=== PATIENT | male | born 1950 | race Caucasian/White ===

== ENCOUNTER 2017-06-23 11:45 | Emergency (ER) | payer BC ==
[2017-06-23 11:53] VITALS: RESP 18
[2017-06-23] MEDS ORDERED: KETOROLAC 60 MG/2 ML VIAL IM STA (12:36)
--- NOTE | 2017-06-23 12:39 | ED ---
General Adult HPI - General Chief complaint: Back Pain/Injury Stated complaint: Back Pain Time Seen by Provider: 06/23/17 12:19 Source: patient, RN notes reviewed Mode of arrival: ambulatory Limitations: no limitations - History of Present Illness Initial comments: Patient 66-year-old male presented to the emergency room today with a chief complaint of pain left side of his back. Patient states that pain started 2 days ago. He describes it as sharp type pain is reproduced with certain movements. He states he sitting her not moving has no pain. Patient does admit that he talked to the family doctor who did call and a muscle relaxer that he tried last night with little relief the symptoms. Patient denies any known injury or trauma to the area. He does admit that he has diabetic nerve pain that he takes Lyrica for but this feels different. He states does not feel like a kidney stone that he had in the past as well. Patient denies any other complaints. Patient denies any recent fever, chills, shortness of breath, chest pain, abdominal pain, nausea or vomiting, numbness or tingling, dysuria or hematuria, constipation or diarrhea, headaches or visual changes, or any other complaints. - Related Data Home Medications Medication Instructions Recorded Confirmed Atorvastatin [Lipitor] 80 mg PO W/SUPPER 05/21/14 06/23/17 Cholecalciferol [Vitamin D3] 2,000 unit PO BID-W/MEALS 05/21/14 06/23/17 Famotidine [Pepcid] 20 mg PO W/SUPPER 05/21/14 06/23/17 Furosemide [Lasix] 40 mg PO DAILY PRN 05/21/14 06/23/17 Levothyroxine Sodium [Synthroid] 100 mcg PO DAILY 05/21/14 06/23/17 Losartan [Cozaar] 50 mg PO DAILY 05/21/14 06/23/17 Newton-3 Fatty Acids/Fish Oil [Fish 1 cap PO BID 05/21/14 06/23/17 Oil 1,000 mg Softgel] Spironolactone 50 mg PO DAILY 05/21/14 06/23/17 metFORMIN HCL [Glucophage] 1,000 mg PO BID 05/21/14 06/23/17 Aspirin EC [Ecotrin] 81 mg PO DAILY 06/13/14 06/23/17 Docusate [Colace] 100 mg PO DAILY 06/13/14 06/23/17 Insulin Glargine [Lantus] 60 unit SQ QAM 06/13/14 06/23/17 Naproxen Sodium [Aleve] 220 mg PO BID PRN 06/13/14 06/23/17 Acetaminophen [Tylenol Extra 500 mg PO Q6H PRN 06/23/17 06/23/17 Strength] Baclofen 10 mg PO TID 06/23/17 06/23/17 Chlorpheniramine/Dextromethorp 1 tab PO BID PRN 06/23/17 06/23/17 [Coricidin Hbp Cough & Cold Tab] Dapagliflozin Propanediol [Farxiga] 10 mg PO DAILY 06/23/17 06/23/17 Dulaglutide [Trulicity] 1.5 mg SQ MO 06/23/17 06/23/17 Finasteride [Proscar] 5 mg PO W/SUPPER 06/23/17 06/23/17 Hydrocodone/Acetaminophen [[place] 1 tab PO BID PRN 06/23/17 06/23/17 5-325] Metoprolol Tartrate [Lopressor] 25 mg PO BID 06/23/17 06/23/17 Multivit-Min/FA/Lycopen/Lutein 1 tab PO DAILY 06/23/17 06/23/17 [Centrum Silver Men Tablet] Pregabalin [Lyrica] 100 mg PO QID 06/23/17 06/23/17 Tamsulosin [Flomax] 0.4 mg PO BID-W/MEALS 06/23/17 06/23/17 Previous Rx's Medication Instructions Recorded Hydrocodone/Acetaminophen [[place] 1 each PO Q4-6H PRN #15 tab 06/23/17 5-325] Allergies Allergy/AdvReac Type Severity Reaction Status Date / Time Penicillins Allergy Rash/Hives Verified 06/23/17 12:22 Review of Systems ROS Statement: Those systems with pertinent positive or pertinent negative responses have been documented in the HPI. ROS Other: All systems not noted in ROS Statement are negative. Past Medical History Past Medical History: Coronary Artery Disease (CAD), Diabetes Mellitus, GERD/ Reflux, Hyperlipidemia, Hypertension, Musculoskeletal Disorder, Thyroid Disorder Additional Past Medical History / Comment(s): "BODY PAINS AT NIGHT, D/T DM". NIDDM 2003. History of Any Multi-Drug Resistant Organisms: None Reported Past Surgical History: Cholecystectomy, Coronary Bypass/CABG, Hernia Repair Additional Past Surgical History / Comment(s): PART THYROIDECTOMY. QUAD CABG 2010. Past Anesthesia/Blood Transfusion Reactions: No Reported Reaction Past Psychological History: No Psychological Hx Reported Smoking Status: Never smoker Past Alcohol Use History: None Reported Past Drug Use History: None Reported - Past Family History Father Family Medical History: Cancer Additional Family Medical History / Comment(s): Lung CA General Exam - General Exam Comments Initial Comments: General: The patient is awake and alert, in no distress, and does not appear acutely ill. Eye: Pupils are equal, round and reactive to light, extra-ocular movements are intact. No nystagmus. There is normal conjunctiva bilaterally. No signs of icterus. Ears, nose, mouth and throat: There are moist mucous membranes and no oral lesions. Neck: The neck is supple, there is no tenderness or JVD. Cardiovascular: There is a regular rate and rhythm. No murmur, rub or gallop is appreciated. Respiratory: Lungs are clear to auscultation, respirations are non-labored, breath sounds are equal. No wheezes, stridor, rales, or rhonchi. Musculoskeletal: Normal ROM. Mild tenderness to the left lateral lower ribs. Strength 5/5. Sensation intact. Pulses equal bilaterally 2+. Neurological: A&O x 3. CN II-XII intact, There are no obvious motor or sensory deficits. Coordination appears grossly intact. Speech is normal. Skin: Skin is warm and dry and no rashes or lesions are noted. Psychiatric: Cooperative, appropriate mood & affect, normal judgment. Limitations: no limitations Course Vital Signs 06/23/17 11:49 Temperature 98.2 F Pulse Rate 81 Respiratory 18 Rate Blood Pressure 133/64 O2 Sat by Pulse 95 Oximetry Medical Decision Making - Medical Decision Making Patient's x-rays have been reviewed and lumbar spine shows degenerative changes. X-ray of the chest shows some irregularity consistent with a rib fracture on the left. Patient does have some tenderness to the left lateral ribs. Patient denies any specific injury or trauma. He does admit that his violent sneeze or does not remember anything specifically. Does admit that is worse with coughing and sneezing and certain movements. Patient states that he sitting still spine certain movements cause pain. Does admit to some mild improvement with the Toradol given here the emergency room. Patient is fussy can continue anti-inflammatories at home but will be given a short prescription of [place] to go home with. He does have a follow-up appointment with his family doctor in the next 2 days. Advised return if symptoms increase worsen or any other concerns. Disposition Clinical Impression: Rib fracture Disposition: HOME SELF-CARE Condition: Good Instructions: Rib Fracture (ED) Additional Instructions: Please use medication as discussed. Please follow-up with family doctor in the next 2 days of symptoms have not improved. Please return to emergency room if the symptoms increase or worsen or for any other concerns. Prescriptions: Hydrocodone/Acetaminophen [[place] 5-325] 1 each PO Q4-6H PRN #15 tab PRN Reason: Pain Is patient prescribed a controlled substance at d/c from ED?: Yes Referrals: Susanna Yang MD [Primary Care Provider] - 1-2 days Time of Disposition: 13:33
--- NOTE | 2017-06-23 13:07 | XR ---
EXAMINATION TYPE: XR chest 2V DATE OF EXAM: 06/23/2017 COMPARISON: 11/15/2010 TECHNIQUE: PA and lateral views submitted. HISTORY: Pain FINDINGS: Postoperative changes seen. There is subsegmental linear changes in the left lung suggestive of scar or atelectasis. Arthropathy of the shoulders. No pneumothorax or overt failure. Surgical clips in the abdomen. Hypertrophic change of the spine. There is to be deformity of the lateral margin of the lef t rib cage suggestive of fracture. IMPRESSION: 1. Findings are suggestive of a lateral mid to lower left rib fracture. 2. Linear changes involving the left lung suggestive of scar or atelectasis.
--- NOTE | 2017-06-23 13:12 | XR ---
EXAM TYPE: LUMBAR SPINE X RAY SERIES COMPARISON: NONE HISTORY: Pain TECHNIQUE: Three views are submitted. FINDINGS: Alignment is anatomic. The pedicles are intact. The transverse processes are intact. Surgical clips in the gallbladder fossa. Hypertrophic and degenerative change of the spine noted with marked facet arthropathy L4-5 and L5-S1. Vascular calcifications are noted. There may be minimal ant erolisthesis of L4 on L5. IMPRESSION: 1. Multilevel degenerative disc disease with severe facet arthropathy L4-5 and L5-S1. Grade 1 anterol isthesis L4 on L5.
[2017-06-23 13:36] VITALS: BP 110/58; PULSE 78; TEMP 97.9
== END 2017-06-23 13:42 | disposition home or self-care (01) ==
LOC: EC 11:45
DX: S22.32XA Fracture of one rib, left side, initial encounter for closed fracture (principal); M47.896 Other spondylosis, lumbar region; I25.10 Atherosclerotic heart disease of native coronary artery without angina pectoris; E11.9 Type 2 diabetes mellitus without complications; K21.9 Gastro-esophageal reflux disease without esophagitis; I10 Essential (primary) hypertension; E07.9 Disorder of thyroid, unspecified; Z95.1 Presence of aortocoronary bypass graft; Z79.4 Long term (current) use of insulin; Z79.82 Long term (current) use of aspirin; Z79.899 Other long term (current) drug therapy; Z88.0 Allergy status to penicillin
CPT/HCPCS: 72100; 71046; 99283; 96372; J1885

== ENCOUNTER → 2020-07-21 | Outpatient (CLI) | payer BC ==
[2020-07-21 16:20] LABS: HGB 14.7 gm/dL (13.0-17.5); MCH 30.3 pg (25.0-35.0); MCHC 33.4 g/dL (31.0-37.0); MCV 90.8 fL (80.0-100.0); Mean Platelet Volume 7.1; Platelet Count 259 k/uL (150-450); RBC 4.84 m/uL (4.30-5.90); RDW 14.7 % (11.5-15.5); WBC 9.3 k/uL (3.8-10.6)
[2020-07-21 16:31] LABS: Potassium 4.7 mmol/L (3.5-5.1)
== END | disposition home or self-care (01) ==
LOC: LABWHC1 14:56
PROVIDERS: ATTEND Internal Medicine Interventional Cardiology
DX: Z01.812 Encounter for preprocedural laboratory examination (principal); R94.39 Abnormal result of other cardiovascular function study
CPT/HCPCS: 36415; 80051; 82565; 84520; 85027

== ENCOUNTER 2020-07-24 06:36 | Day surgery (SDC) | payer BC ==
[2020-07-22 15:35] VITALS: BMI 38.2
[~2020-07-24 06:36] MED LIST: ALPRAZolam 0.25 MG TAB PO PRN; ALPRAZolam 0.5 MG TAB PO PRN; ASPIRIN 325 MG TAB PO STA; ATORVASTATIN 80 MG TAB PO STA; NITROGLYCERIN SL TABS 0.4 MG TAB SUBLINGUAL PRN; SODIUM CHLORIDE 0.9% 1,000 ML in EMPTY BAG 1 BAG IV ONE
[2020-07-24] MEDS ORDERED: SODIUM CHLORIDE 0.9% 1,000 ML IV ONE (06:42)
[2020-07-24 07:09] VITALS: RESP 16; TEMP 99.1
[2020-07-24 07:15] LABS: Glucose,Whole Blood 222 mg/dL (75-99)
[2020-07-24] MEDS ORDERED: INSULIN ASPART (NovoLOG) 100 UNIT/ML VIAL SQ ONE (07:15)
[2020-07-24] MEDS ORDERED: LIDOCAINE 1% INJ 10MG/ML (20 ML MDV) ONE (12:17)
[2020-07-24] MEDS ORDERED: LIDOCAINE 1% INJ 10MG/ML (20 ML MDV) SQ ONE (12:31)
[2020-07-24] MEDS ORDERED: MIDAZOLAM 2 MG/2 ML VIAL IV ONE (12:31)
[2020-07-24] MEDS ORDERED: IOPAMIDOL-370 125ML BTL INJ ONE (12:51)
[2020-07-24] MEDS ORDERED: RX INFO: IV CONTRAST WAS GIVEN 1 EACH MISC MISCELLANE PRN (12:56)
[2020-07-24] MEDS ORDERED: SODIUM CHLORIDE 0.9% 1,000 ML IV SCH (13:00)
[2020-07-24] MEDS ORDERED: HYDROmorphone 0.5 MG/0.5 ML SYRINGE IVP PRN (13:15)
[2020-07-24 16:49] VITALS: BP 159/73; PULSE 88
--- NOTE | 2020-07-24 18:59 | CC ---
CARDIAC CATHETERIZATION REPORT DATE OF SERVICE: July 24, 2020. PERFORMING PHYSICIAN: Rah Alonzo MD. PROCEDURE PERFORMED: 1. Selective left and right coronary angiogram. 2. GU to LAD angiogram. 3. SVG to first and second diagonal angiogram. 4. Aortic root angiogram. 5. Left heart catheterization. 6. Selective right common femoral artery angiogram. INDICATION: This is a 69-year-old gentleman with coronary artery disease and prior coronary artery bypass grafting with GU to LAD and SVG to first and second diagonal and radial artery to OM, who was seen in the office recently where he was experiencing symptoms of chest pain and shortness of breath concerning for severe underlying coronary artery disease. APPROACH: Right common femoral artery. COMPLICATION: None. LEVEL OF SEDATION: Moderate with sedation length of 20 minutes. PROCEDURE DESCRIPTION: After obtaining informed consent, the patient was brought to the cardiac stores laborer. The right common femoral artery was cannulated using micropuncture technique and a micropuncture wire passed easily. Then I placed a 6-[place] sheath at the right common femoral artery. I did perform selective left and right coronary angiogram with JL4 and JR4 catheters. SVG to first and second diagonal was performed using the JR4 catheter. The GU to LAD angiogram was performed using the JR4 catheter. An aortic root angiogram was performed using the 6-[place] pigtail catheter and the left heart catheterization also was performed using 6-[place] pigtail catheter. The procedure was completed without any complication and by the end, we did selective right common femoral artery angiogram. SELECTIVE CORONARY ANGIOGRAM: 1. The left main appeared to have mild to moderate disease. It bifurcates into LCX and LAD. 2. The LCX has ostial lesion appeared to be in the range of 50% to 60%. 3. The LAD is 100% occluded in the proximal portion. 4. The RCA appeared to have mild disease only. CORONARY BYPASSES ANGIOGRAM: 1. The GU to LAD is patent and feeds the LAD all the way to the midportion and also feeds the diagonal. 2. The SVG to first and second diagonal was occluded. 3. I could not opacify any other bypasses and for that reason I did aortic root angiogram which did not show any evidence of bypasses as well. AORTIC ROOT ANGIOGRAM: The aortic root angiogram was performed using use in the ARMENIAN projection and using a power injection. The aortic root did not show any evidence of bypasses. HEMODYNAMICS: The LVEDP was 10 to 12 mmHg without significant gradient across aortic valve. CONCLUSION: 1. Occluded LAD in the proximal portion, but the GU to LAD is widely patent with good flow. 2. Intermediate lesion involving unprotect left circumflex. The lesion is in the proximal portion. 3. Mild disease involving the right coronary artery. 4. Normal LVEDP. POSTPROCEDURE MANAGEMENT: 1. Aggressive cholesterol control. 2. Risk factor modifications. 3. Continue follow up with the patient. MMODL / IJN: [id number] /
== END 2020-07-24 18:13 | disposition home or self-care (01) ==
LOC: CATHCVL 06:36
PROVIDERS: ATTEND Internal Medicine Interventional Cardiology
DX: I25.110 Atherosclerotic heart disease of native coronary artery with unstable angina pectoris (principal); I25.82 Chronic total occlusion of coronary artery; I10 Essential (primary) hypertension; I25.710 Atherosclerosis of autologous vein coronary artery bypass graft(s) with unstable angina pectoris; E13.9 Other specified diabetes mellitus without complications; E66.3 Overweight; E78.00 Pure hypercholesterolemia, unspecified; E78.5 Hyperlipidemia, unspecified; Z79.890 Hormone replacement therapy; Z79.4 Long term (current) use of insulin; Z79.899 Other long term (current) drug therapy; Z88.0 Allergy status to penicillin
CPT/HCPCS: 93459; 93567; 87635; C1760; C1894; C1769 ×2; J2250; J2001; J1170; Q9967

== ENCOUNTER → 2020-08-27 | Outpatient (CLI) | payer BC ==
--- NOTE | 2020-08-28 05:28 | MR ---
EXAMINATION TYPE: MR lumbar spine wo con DATE OF EXAM: 08/27/2020 COMPARISON: None HISTORY: Low back pain down both legs for several years. Multiplanar multiecho imaging of the lumbar spine with no contrast. There is a few millimeter anterior subluxation of L4 in relation L5. I see no spondylolysis. There is mild disc space narrowing at L3-4 and L4-5. There are small posterior disc herniations from L3 to S1 . There is developmentally large spinal canal and no spinal stenosis. Sacroiliac joints appear intact . There is mild hypertrophic facet arthropathy in the lower lumbar spine. There is no paraspinal mass . The lumbar neural foramina are fairly normal. There is slight narrowing of the L4-5 and L5-S1 neura l foramina due to mild disc space narrowing and facet arthropathy. There is no compression fracture. I see no focal bone destruction. IMPRESSION: Mild multilevel spondylotic changes and multilevel mild posterior central disc herniations. No spinal stenosis. No fracture.
--- NOTE | 2020-08-28 05:31 | MR ---
EXAMINATION TYPE: MR brain wo con DATE OF EXAM: 08/27/2020 COMPARISON: None HISTORY: Dizziness, balance issues, memory loss. Multiplanar multiecho imaging of the brain with no contrast. There is some diffuse cerebral cortical atrophy. There is no mass effect nor midline shift. There is no sign of intracranial hemorrhage. Diffusion images show no evidence of an acute infarct. On the T2 and FLAIR images there are scattered white matter high signal foci at the guerra-white matter junction of both cerebral hemispheres. These measure up to 7 mm and total number is approximately 15 . The brainstem is intact. Cerebellum is intact. There is some mucosal thickening in the ethmoid air cells. The internal auditory canals appear normal. IMPRESSION: Cerebral atrophy. White matter signal changes probably due to chronic small vessel ischemia. Demyelin ating disease not entirely excluded. No evidence of an acute infarct. No focal posterior fossa abnorm ality. Mild ethmoid sinusitis.
== END | disposition home or self-care (01) ==
LOC: RADMRIMAIN 15:35
PROVIDERS: ATTEND Psychiatry & Neurology Neurology
DX: M47.816 Spondylosis without myelopathy or radiculopathy, lumbar region (principal); M51.27 Other intervertebral disc displacement, lumbosacral region; G31.9 Degenerative disease of nervous system, unspecified
CPT/HCPCS: 70551; 72148

== ENCOUNTER → 2020-09-01 | Outpatient (CLI) | payer BC ==
[2020-09-01 23:41] LABS: Basophils # (A) 0.05 X 10*3/uL (0.00-0.10); Basophils % (A) 0.6 %; Eosinophils # (A) 0.17 X 10*3/uL (0.04-0.35); Eosinophils % (A) 1.9 %; HGB 13.9 g/dL (13.0-17.0); Lymphocytes # (A) 1.92 X 10*3/uL (0.90-5.00); Lymphocytes % (A) 21.2 %; MCH 29.5 pg (27.0-32.0); MCHC 31.6 g/dL (32.0-37.0); MCV 93.4 fL (80.0-97.0); Mean Platelet Volume 9.6 fL (9.5-12.2); Monocytes # (A) 0.95 X 10*3/uL (0.20-1.00); Monocytes % (A) 10.5 %; Neutrophils # (A) 5.91 X 10*3/uL (1.80-7.70); Neutrophils % (A) 65.2 %; Platelet Count 242 X 10*3/uL (140-440); RBC 4.71 X 10*6/uL (4.40-5.60); RDW 15.2 % (11.5-14.5); WBC 9.05 X 10*3/uL (4.50-10.00)
[2020-09-02 00:40] LABS: Erythrocyte Sedimentation Rate 37 mm/Hr (0-20)
[2020-09-02 00:47] LABS: Protein, Total 6.8 g/dL (6.2-8.2)
[2020-09-02 03:52] LABS: Hemoglobin A1C 8.5 % (4.0-6.0)
[2020-09-02 05:13] LABS: ALT 25 U/L (10-49); AST 21 U/L (14-35); C Reactive Protein <0.4 mg/dL (0.0-0.8); Carbon Dioxide 25.7 mmol/L (21.6-31.8); Chloride 102 mmol/L (96-109); Potassium 4.6 mmol/L (3.5-5.5); Prostate Specific Antigen 1.4 ng/mL (0.0-6.5); Sodium 139 mmol/L (135-145); Uric Acid 5.8 mg/dL (3.7-8.7)
[2020-09-02 13:11] LABS: Albumin 3.84 g/dL (3.80-4.90)
[2020-09-02 13:25] LABS: C-ANCA <1:20 Titer (<1:20)
== END | disposition home or self-care (01) ==
LOC: LABWHC1 13:57
PROVIDERS: ATTEND Urology
DX: R97.20 Elevated prostate specific antigen [PSA] (principal); G31.84 Mild cognitive impairment of uncertain or unknown etiology; G47.33 Obstructive sleep apnea (adult) (pediatric); G62.9 Polyneuropathy, unspecified; M54.30 Sciatica, unspecified side; G47.19 Other hypersomnia; R47.89 Other speech disturbances
CPT/HCPCS: 36415; 80051; 82140; 82607; 83036; 84153; 84165; 84439; 84450; 84460; 84481; 84550; 85025; 85652; 86038; 86140; 86255; 86334; 86780

== ENCOUNTER → 2020-11-04 | Outpatient (CLI) | payer BC ==
[2020-11-04 18:52] LABS: Basophils # (A) 0.07 X 10*3/uL (0.00-0.10); Basophils % (A) 0.8 %; Eosinophils # (A) 0.19 X 10*3/uL (0.04-0.35); Eosinophils % (A) 2.2 %; HCT 45.9 % (39.6-50.0); HGB 14.5 g/dL (13.0-17.0); Lymphocytes # (A) 1.64 X 10*3/uL (0.90-5.00); Lymphocytes % (A) 18.8 %; MCH 29.6 pg (27.0-32.0); MCHC 31.6 g/dL (32.0-37.0); MCV 93.7 fL (80.0-97.0); Mean Platelet Volume 9.5 fL (9.5-12.2); Monocytes % (A) 10.3 %; Neutrophils # (A) 5.87 X 10*3/uL (1.80-7.70); Neutrophils % (A) 67.4 %; Platelet Count 238 X 10*3/uL (140-440); RDW 15.5 % (11.5-14.5); WBC 8.71 X 10*3/uL (4.50-10.00)
[2020-11-04 20:38] LABS: Hemoglobin A1C 7.7 % (4.0-6.0)
[2020-11-05 03:26] LABS: African American GFR (CKD) 64.1 (60.0-200.0); Albumin 4.7 g/dL (3.80-4.90); Albumin/Globulin Ratio 2.14 (1.60-3.17); Anion Gap 10.9 mmol/L (4.00-12.00); BUN/Creat Ratio 19.23 Ratio (12.00-20.00); Calcium 9.2 mg/dL (8.7-10.3); Carbon Dioxide 25.1 mmol/L (21.6-31.8); Chol/HDL Ratio 4.66; Globulin 2.2 g/dL (1.6-3.3); LDL Cholesterol,Calculated 98.8 mg/dL (0.0-131.0); Non-African American GFR(CKD) 55.3 (60.0-200.0); Potassium 4.8 mmol/L (3.5-5.5); Total Bilirubin 0.5 mg/dL (0.3-1.2); Total Protein 6.9 g/dL (6.2-8.2); VLDL Calculation 29.2 mg/dL (5.00-40.00)
== END | disposition home or self-care (01) ==
LOC: LABWHC1 14:33
PROVIDERS: ATTEND Internal Medicine Infectious Disease
DX: Z12.5 Encounter for screening for malignant neoplasm of prostate (principal); I10 Essential (primary) hypertension; E11.9 Type 2 diabetes mellitus without complications; E78.00 Pure hypercholesterolemia, unspecified; E03.9 Hypothyroidism, unspecified; E55.9 Vitamin D deficiency, unspecified
CPT/HCPCS: 84439; 80061; 80053; 84443; 85025; 82306; 83036; 36415; G0103

== ENCOUNTER → 2021-02-26 | Outpatient (CLI) | payer BC ==
[2021-02-26 19:08] LABS: ALT 27 U/L (10-49); AST 19 U/L (14-35); African American GFR (CKD) 64.8 (60.0-200.0); Albumin 4.3 g/dL (3.8-4.9); Albumin/Globulin Ratio 1.74 (1.60-3.17); Alkaline Phosphatase 74 U/L (41-126); BUN/Creat Ratio 18.52 Ratio (12.00-20.00); Blood Urea Nitrogen 23.7 mg/dL (9.0-27.0); Calcium 9.9 mg/dL (8.7-10.3); Carbon Dioxide 28.5 mmol/L (20.0-27.5); Chloride 102 mmol/L (96-109); Chol/HDL Ratio 4.53 Ratio; Globulin 2.5 g/dL (1.6-3.3); Glucose 157 mg/dL (70-110); LDL Cholesterol,Calculated 79.4 mg/dL (0.0-131.0); Non-African American GFR(CKD) 55.9 (60.0-200.0); Potassium 4.6 mmol/L (3.5-5.5); Sodium 141 mmol/L (135-145); Total Protein 6.8 g/dL (6.2-8.2)
[2021-02-26 20:27] LABS: Basophils # (A) 0.07 X 10*3/uL (0.00-0.10); Basophils % (A) 0.8 %; Eosinophils # (A) 0.22 X 10*3/uL (0.04-0.35); Eosinophils % (A) 2.5 %; HCT 48.1 % (39.6-50.0); HGB 14.8 g/dL (13.0-17.0); Lymphocytes # (A) 1.55 X 10*3/uL (0.90-5.00); Lymphocytes % (A) 17.6 %; MCH 29.4 pg (27.0-32.0); MCHC 30.8 g/dL (32.0-37.0); MCV 95.4 fL (80.0-97.0); Mean Platelet Volume 9.8 fL (9.5-12.2); Monocytes # (A) 0.72 X 10*3/uL (0.20-1.00); Monocytes % (A) 8.2 %; Neutrophils # (A) 6.18 X 10*3/uL (1.80-7.70); Neutrophils % (A) 70.3 %; Platelet Count 241 X 10*3/uL (140-440); RBC 5.04 X 10*6/uL (4.40-5.60); RDW 15.6 % (11.5-14.5); WBC 8.79 X 10*3/uL (4.50-10.00)
== END | disposition home or self-care (01) ==
LOC: LABWHC1 11:31
PROVIDERS: ATTEND Internal Medicine Infectious Disease
DX: Z12.5 Encounter for screening for malignant neoplasm of prostate (principal); E11.9 Type 2 diabetes mellitus without complications; I10 Essential (primary) hypertension; E78.00 Pure hypercholesterolemia, unspecified; E03.9 Hypothyroidism, unspecified
CPT/HCPCS: 84439; 80061; 80053; 84443; 85025; 82306; 83036; 36415; G0103

== ENCOUNTER → 2021-06-15 | Outpatient (CLI) | payer BC ==
[2021-06-15 18:56] LABS: African American GFR (CKD) 66.7 (60.0-200.0); Anion Gap 10.7 mmol/L (10.00-18.00); BUN/Creat Ratio 17.52 Ratio (12.00-20.00); Blood Urea Nitrogen 21.9 mg/dL (9.0-27.0); Calcium 9.4 mg/dL (8.7-10.3); Carbon Dioxide 26.1 mmol/L (20.0-27.5); Non-African American GFR(CKD) 57.6 (60.0-200.0); Potassium 4.2 mmol/L (3.5-5.5)
[2021-06-15 23:23] LABS: Urine Alcohol Negative (Negative); Urine Barbiturate Negative (Negative); Urine Cocaine Negative (Negative); Urine Methadone Negative (Negative); Urine Opiates Negative (Negative); Urine Phencyclidine Negative (Negative)
== END | disposition home or self-care (01) ==
LOC: LABWHC1 10:26
PROVIDERS: ATTEND Internal Medicine Infectious Disease
DX: E11.9 Type 2 diabetes mellitus without complications (principal); G89.29 Other chronic pain
CPT/HCPCS: 36415; 80048; 80306; 83036

== ENCOUNTER → 2022-01-10 | Outpatient (CLI) | payer BC ==
[2022-01-10 23:48] LABS: Basophils # (A) 0.07 X 10*3/uL (0.00-0.10); Basophils % (A) 0.7 %; Eosinophils # (A) 0.17 X 10*3/uL (0.04-0.35); Eosinophils % (A) 1.8 %; HCT 41.1 % (39.6-50.0); Immature Grans, Automated 0.4 %; Lymphocytes # (A) 1.97 X 10*3/uL (0.90-5.00); MCHC 31.6 g/dL (32.0-37.0); MCV 94.7 fL (80.0-97.0); Mean Platelet Volume 10.8 fL (9.5-12.2); Monocytes # (A) 0.73 X 10*3/uL (0.20-1.00); Monocytes % (A) 7.8 %; NRBC Per 100 WBC 0 /100 WBCS (0.0-0.0); Neutrophils # (A) 6.41 X 10*3/uL (1.80-7.70); Neutrophils % (A) 68.3 %; Platelet Count 213 X 10*3/uL (140-440); RBC 4.34 X 10*6/uL (4.40-5.60); WBC 9.39 X 10*3/uL (4.50-10.00)
[2022-01-11 00:40] LABS: ALT 22 U/L (10-49); AST 21 U/L (14-35); African American GFR (CKD) 60.4 (60.0-200.0); Albumin 4.2 g/dL (3.8-4.9); Albumin/Globulin Ratio 1.69 (1.60-3.17); Alkaline Phosphatase 57 U/L (41-126); BUN/Creat Ratio 17.85 Ratio (12.00-20.00); Blood Urea Nitrogen 24.1 mg/dL (9.0-27.0); Calcium 9.3 mg/dL (8.7-10.3); Carbon Dioxide 26.3 mmol/L (20.0-27.5); Chloride 105 mmol/L (96-109); Chol/HDL Ratio 4.19 Ratio; Globulin 2.5 g/dL (1.6-3.3); Glucose 109 mg/dL (70-110); LDL Cholesterol,Calculated 69.9 mg/dL (0.0-131.0); Non-African American GFR(CKD) 52.1 (60.0-200.0); Potassium 3.9 mmol/L (3.5-5.5); Sodium 144 mmol/L (135-145); Total Protein 6.7 g/dL (6.2-8.2)
[2022-01-11 01:21] LABS: Urine Alcohol Negative (Negative); Urine Barbiturate Negative (Negative); Urine Cocaine Negative (Negative); Urine Methadone Negative (Negative); Urine Opiates Negative (Negative); Urine Phencyclidine Negative (Negative)
== END | disposition home or self-care (01) ==
LOC: LABWHC1 13:16
PROVIDERS: ATTEND Psychiatry & Neurology Neurology
DX: Z12.5 Encounter for screening for malignant neoplasm of prostate (principal); E10.9 Type 1 diabetes mellitus without complications; E03.9 Hypothyroidism, unspecified; E78.00 Pure hypercholesterolemia, unspecified; G89.29 Other chronic pain; E55.9 Vitamin D deficiency, unspecified
CPT/HCPCS: 36415; 80053; 80061; 80306; 82306; 83036; 84439; 84443; 85025

== ENCOUNTER → 2022-07-28 | Outpatient (CLI) | payer BC ==
[2022-07-29 02:36] LABS: C Reactive Protein <0.30 mg/dL (0.00-0.80)
[2022-07-29 04:37] LABS: EBV-EA (IgG) >8.0 AI; EBV-EBNA(IgG) >8.0; EBV-VCA (IgG) >8.0 AI; EBV-VCA (IgM) 0.3 AI
== END | disposition home or self-care (01) ==
LOC: LABWHC1 15:35
PROVIDERS: ATTEND Psychiatry & Neurology Neurology
DX: G47.19 Other hypersomnia (principal); M54.2 Cervicalgia; R53.1 Weakness
CPT/HCPCS: 36415; 82306; 82607; 82728; 84403; 84443; 84480; 84481; 85652; 86038; 86140; 86618; 86663; 86664; 86665; 86780

== ENCOUNTER → 2022-09-09 | Outpatient (CLI) | payer BC ==
[2022-09-10 02:24] LABS: ALT 34 U/L (10-49); AST 26 U/L (14-35); Albumin 4.1 d/dL (3.8-4.9); Albumin/Globulin Ratio 1.95 Ratio (1.60-3.17); Alkaline Phosphatase 54 U/L (41-126); BUN/Creat Ratio 16.71 Ratio (12.00-20.00); Blood Urea Nitrogen 28.4 mg/dL (9.0-27.0); Calcium 9.6 mg/dL (8.7-10.3); Carbon Dioxide 27.8 mmol/L (21.6-31.8); Chloride 103 mmol/L (96-109); Chol/HDL Ratio 4.13 Ratio; Globulin 2.1 d/dL (1.6-3.3); Glucose 149 mg/dL (70-110); Potassium 4.2 mmol/L (3.5-5.5); Sodium 142 mmol/L (135-145); Total Bilirubin 0.2 mg/dL (0.3-1.2); Total Protein 6.2 d/dL (6.2-8.2)
[2022-09-10 02:25] LABS: T4, Free (Free Thyroxine) 1.07 ng/dL (0.80-1.80)
== END | disposition home or self-care (01) ==
LOC: LABWHC1 12:15
PROVIDERS: ATTEND Internal Medicine
DX: E11.65 Type 2 diabetes mellitus with hyperglycemia (principal); E03.9 Hypothyroidism, unspecified
CPT/HCPCS: 36415; 80053; 80061; 83036; 84439; 84443

== ENCOUNTER → 2022-11-24 | Outpatient (CLI) | payer BC ==
--- NOTE | 2022-11-25 10:53 | NM ---
EXAMINATION TYPE: NM DatScan Brain SPECT DATE OF EXAM: 11/24/2022 COMPARISON: NONE HISTORY: Parkinson's disease with trauma TECHNIQUE: 10 drops of Lugol's solution was administered 1 hour prior to injection as a thyroid bloc dulce agent. After the administration of 4.68 mCi I-123 Ioflupane DaTscan. Images obtained 3 hours p ost injection. SPECT images of the brain were acquired with axial and coronal reconstructions. FINDINGS: The axial SPECT images demonstrate increased background activity and symmetric activity wit hin the bilateral striata. Z score ranges all in the positive levels. IMPRESSION: 1. No scintigraphic evidence of idiopathic Parkinson's disease or Parkinsonian syndrome.
== END | disposition home or self-care (01) ==
LOC: RADNMMAIN 10:54
PROVIDERS: ATTEND Psychiatry & Neurology Neurology
DX: G20.C Parkinsonism, unspecified (principal); G62.9 Polyneuropathy, unspecified
CPT/HCPCS: 78803; A9584

== ENCOUNTER → 2023-03-01 | Outpatient (CLI) | payer BC ==
--- NOTE | 2023-03-01 16:50 | US ---
EXAMINATION TYPE: US venous doppler duplex LE DATE OF EXAM: 03/01/2023 3:25 PM COMPARISON: LOWER EXTREMITY VENOUS INSUFFICIENCY CLINICAL INDICATION: Male, 72 years old with history of I87.2 VENOUS INSUFFICIENCY; Pain and edema SIDE PERFORMED: bilateral 1) Color flow is present and patency is documented in the following vessels. No DVT or SVT is noted . Common Femoral Vein Deep Femoral Vein Femoral Vein Popliteal Vein Proximal Calf Veins Greater Saph Vein Upper Small Saph Vein 2) There is venous reflux noted at the following venous levels: none 3) Incompetent perforators are noted at these levels: none IMPRESSION: No evidence for DVT within the bilateral lower extremities imaged from the groin to the u pper calves. No venous reflux identified on either side.
== END | disposition home or self-care (01) ==
LOC: RADUSWWP 14:53
PROVIDERS: ATTEND Psychiatry & Neurology Neurology
DX: I87.2 Venous insufficiency (chronic) (peripheral) (principal); M79.662 Pain in left lower leg; M79.661 Pain in right lower leg; R60.0 Localized edema
CPT/HCPCS: 93970

== ENCOUNTER → 2023-11-02 | Outpatient (CLI) | payer BC ==
[2023-11-02 15:28] LABS: HCT 38.6 % (39.6-50.0); MCH 29.8 pg (27.0-32.0); MCHC 31.1 g/dL (32.0-37.0); MCV 95.8 FL (80.0-97.0); Mean Platelet Volume 10.1 FL (9.5-12.2); NRBC Per 100 WBC 0 X 10*3/uL (0.00-0.01); Platelet Count 193 X 10*3/uL (140-440); RBC 4.03 X 10*6/uL (4.40-5.60); RDW 15.9 % (11.5-14.5); WBC 7.92 X 10*3/uL (4.50-10.00)
[2023-11-02 15:29] LABS: Basophils # (A) 0.06 X 10*3/uL (0.00-0.10); Basophils % (A) 0.8 %; Eosinophils # (A) 0.16 X 10*3/uL (0.04-0.35); Lymphocytes # (A) 1.45 X 10*3/uL (0.90-5.00); Lymphocytes % (A) 18.3 %; Monocytes # (A) 0.65 X 10*3/uL (0.20-1.00); Monocytes % (A) 8.2 %; Neutrophils # (A) 5.53 X 10*3/uL (1.80-7.70); Neutrophils % (A) 69.8 %
[2023-11-02 15:40] LABS: ALT 9 U/L (10-49); AST 16 U/L (14-35); Albumin 4.1 g/dL (3.8-4.9); Albumin/Globulin Ratio 2.16 Ratio (1.60-3.17); Alkaline Phosphatase 54 U/L (41-126); BUN/Creat Ratio 14.45 Ratio (12.00-20.00); Blood Urea Nitrogen 15.9 mg/dL (9.0-27.0); Calcium 9.6 mg/dL (8.7-10.3); Carbon Dioxide 22.8 mmol/L (21.6-31.8); Chloride 111 mmol/L (96-109); Chol/HDL Ratio 3.37 Ratio; Globulin 1.9 g/dL (1.6-3.3); Glucose 115 mg/dL (70-110); LDL Cholesterol,Calculated 61.6 mg/dL (0.0-131.0); Potassium 4.3 mmol/L (3.5-5.5); Sodium 145 mmol/L (135-145); T4, Free (Free Thyroxine) 1.35 ng/dL (0.80-1.80); Total Bilirubin 0.2 mg/dL (0.3-1.2)
[2023-11-02 20:00] LABS: Urine Creatinine 64.6 mg/dL (39.0-259.0)
== END | disposition home or self-care (01) ==
LOC: LABWHC1 11:16
PROVIDERS: ATTEND Internal Medicine Infectious Disease
DX: Z12.5 Encounter for screening for malignant neoplasm of prostate (principal); E03.9 Hypothyroidism, unspecified; E11.65 Type 2 diabetes mellitus with hyperglycemia; I10 Essential (primary) hypertension; E78.00 Pure hypercholesterolemia, unspecified; E55.9 Vitamin D deficiency, unspecified
CPT/HCPCS: 36415; 80053; 80061; 82043; 82306; 82570; 83036; 84439; 84443; 85025

== ENCOUNTER → 2024-03-09 | Outpatient (CLI) | payer BC ==
[2024-03-10 07:07] LABS: HCT 40.3 % (39.6-50.0); HGB 12.2 g/dL (13.0-17.0); MCH 30.1 pg (27.0-32.0); MCHC 30.3 g/dL (32.0-37.0); MCV 99.5 FL (80.0-97.0); Mean Platelet Volume 10.6 FL (9.5-12.2); NRBC Per 100 WBC 0 X 10*3/uL (0.00-0.01); Platelet Count 174 X 10*3/uL (140-440); RBC 4.05 X 10*6/uL (4.40-5.60); RDW 17.1 % (11.5-14.5); WBC 8.98 X 10*3/uL (4.50-10.00)
[2024-03-10 07:08] LABS: Basophils # (A) 0.09 X 10*3/uL (0.00-0.10); Eosinophils # (A) 0.11 X 10*3/uL (0.04-0.35); Eosinophils % (A) 1.2 %; Lymphocytes # (A) 1.48 X 10*3/uL (0.90-5.00); Lymphocytes % (A) 16.5 %; Monocytes % (A) 8.9 %; Neutrophils # (A) 6.34 X 10*3/uL (1.80-7.70); Neutrophils % (A) 70.6 %
[2024-03-10 09:03] LABS: % Iron Saturation 23.83 (15.00-50.00); ALT 35 U/L (10-49); AST 20 U/L (14-35); Albumin 3.8 g/dL (3.8-4.9); Albumin/Globulin Ratio 1.73 Ratio (1.60-3.17); Alkaline Phosphatase 55 U/L (41-126); Blood Urea Nitrogen 19.8 mg/dL (9.0-27.0); Calcium 9.6 mg/dL (8.7-10.3); Carbon Dioxide 22.3 mmol/L (21.6-31.8); Chloride 109 mmol/L (96-109); Chol/HDL Ratio 3.21 Ratio; Globulin 2.2 g/dL (1.6-3.3); Glucose 103 mg/dL (70-110); Iron 71 UG/DL (65-175); Potassium 4.4 mmol/L (3.5-5.5); Sodium 142 mmol/L (135-145); T4, Free (Free Thyroxine) 0.99 ng/dL (0.80-1.80); Total Bilirubin 0.3 mg/dL (0.3-1.2); Total Iron Binding Capacity 298 UG/DL (228-460)
[2024-03-10 10:03] LABS: Microalbumin Creatinine Ratio <17 mg/g Cr (0-30); Urine Creatinine 69.7 mg/dL (39.0-259.0)
== END | disposition home or self-care (01) ==
LOC: LABWHC1 10:18
PROVIDERS: ATTEND Internal Medicine
DX: I10 Essential (primary) hypertension (principal); D64.9 Anemia, unspecified; E03.8 Other specified hypothyroidism; E11.65 Type 2 diabetes mellitus with hyperglycemia; Z79.4 Long term (current) use of insulin
CPT/HCPCS: 36415; 80053; 80061; 82043; 82570; 83036; 83540; 83550; 84439; 84443; 85025

== ENCOUNTER → 2024-06-07 | Outpatient (CLI) | payer BC ==
--- NOTE | 2024-06-12 13:31 | US ---
EXAMINATION TYPE: US kidneys/renal and bladder DATE OF EXAM: 06/07/2024 COMPARISON: NONE CLINICAL INDICATION: Male, 73 years old with history of N17.9 ACUTE KIDNEY FAILURE, UNSPECIFIED; TECHNIQUE: Grayscale imaging of the bilateral kidneys and urinary bladder: FINDINGS: EXAM MEASUREMENTS: Right Kidney: cm Left Kidney: cm Post Void Residual Volume: mL Right Kidney: 12.0 x 5.7 x 5.3 cm Left Kidney: 13.0 x 6.6 x 5.8 cm Bladder: No wall thickening Bilateral Jets seen: Yes Normal Post Void Residual: Yes There is no evidence for hydronephrosis at this point in time. Nonobstructing calculus lower pole lef t kidney measuring 9 mm. No masses are identified. The urinary bladder is anechoic. IMPRESSION: Nonobstructive left-sided nephrolithiasis. [facility], , 06/12/2024 1:29 PM
== END | disposition home or self-care (01) ==
LOC: RADUSWWP 16:13
PROVIDERS: ATTEND Internal Medicine
DX: N20.0 Calculus of kidney (principal); N17.9 Acute kidney failure, unspecified
CPT/HCPCS: 76770

== ENCOUNTER → 2024-06-21 | Outpatient (CLI) | payer BC ==
[2024-06-21 17:02] LABS: Creatinine,Urine Random 62.8 mg/dL; Protein/Creatinine Ratio,Urine 0.366
[2024-06-21 19:32] LABS: Urine Creatinine 66.4 mg/dL (39.0-259.0)
[2024-06-21 19:58] LABS: BUN/Creat Ratio 16.64 Ratio (12.00-20.00); Blood Urea Nitrogen 18.3 mg/dL (9.0-27.0); Calcium 9.6 mg/dL (8.7-10.3); Carbon Dioxide 24.8 mmol/L (21.6-31.8); Chloride 108 mmol/L (96-109); Glucose 111 mg/dL (70-110); Phosphorus 3.1 mg/dL (2.4-5.1); Potassium 4.7 mmol/L (3.5-5.5); Sodium 145 mmol/L (135-145)
[2024-06-21 20:49] LABS: Appearance,Urine Clear (Clear); Bilirubin,Urine Negative (Negative); Blood,Urine Trace (Negative); Color,Urine Yellow (Yellow); Ketones,Urine Negative (Negative); Nitrite,Urine Negative (Negative); PH, Urine 5.5; Specific Gravity,Urine 1.027 (1.001-1.030); Urobilinogen,Urine 0.2 E.U./DL
[2024-06-21 20:56] LABS: Bacteria,Urine Trace (None Seen)
== END | disposition home or self-care (01) ==
LOC: LABWHC1 16:01
PROVIDERS: ATTEND Internal Medicine
DX: N17.9 Acute kidney failure, unspecified (principal)
CPT/HCPCS: 36415; 80069; 81001; 82043; 82570; 84156; 87086